=== PATIENT | female | born 1945 | race Native Hawaiian/Other Pacific Islander ===

== ENCOUNTER 2017-04-08 15:09 | Outpatient (CLI) | payer OTHER, MEDICARE ==
[2017-04-08 15:31] LABS: PLATELET COUNT 285 K/uL (152-353)
[2017-04-08 16:12] LABS: POTASSIUM 4.5 mmol/L (3.6-5.2)
== END 2017-04-08 19:18 | disposition home or self-care (01) ==
LOC: LAB 15:09
PROVIDERS: Nurse Practitioner Family
DX: K21.9 Gastro-esophageal reflux disease without esophagitis (principal); I10 Essential (primary) hypertension; E78.4 Other hyperlipidemia; E55.9 Vitamin D deficiency, unspecified; Z79.899 Other long term (current) drug therapy; Z51.81 Encounter for therapeutic drug level monitoring
CPT/HCPCS: 80053; 80061; 82306; 83036; 84436; 84443; 85027

== ENCOUNTER 2017-09-21 14:00 | Outpatient (CLI) | payer OTHER, MEDICARE ==
[2017-09-21 14:51] LABS: PLATELET COUNT 287 K/uL (152-353)
[2017-09-21 15:26] LABS: POTASSIUM 3.7 mmol/L (3.6-5.2)
== END 2017-09-21 19:21 | disposition home or self-care (01) ==
LOC: LAB 14:00
PROVIDERS: Nurse Practitioner Family
DX: I10 Essential (primary) hypertension (principal); K21.9 Gastro-esophageal reflux disease without esophagitis; Z86.73 Personal history of transient ischemic attack (TIA), and cerebral infarction without residual deficits; E78.4 Other hyperlipidemia; Z79.899 Other long term (current) drug therapy; Z51.81 Encounter for therapeutic drug level monitoring
CPT/HCPCS: 80053; 80061; 83036; 84436; 84443; 85027

== ENCOUNTER 2017-12-12 08:43 | Observation (INO) | payer OTHER, MEDICARE ==
[~2017-12-12] VITALS: Ht 165.1 cm; Wt 79.5 kg
[2017-12-12 08:59] VITALS: BP 137/75; TEMP 97.3
[2017-12-12] MEDS ORDERED: ELIQUIS5 MG PO (09:00)
[2017-12-12] MEDS ORDERED: PANTOPRAZOLE 40MG TA PO (09:01)
[2017-12-12] MEDS ORDERED: METO50TA27 PO (09:01)
[2017-12-12] MEDS ORDERED: TRIA37.541 PO (09:02)
[2017-12-12] MEDS ORDERED: LIPITOR80 MG PO (09:02)
[2017-12-12 09:47] LABS: PLATELET COUNT 241 K/uL (152-353)
[2017-12-12 09:53] LABS: POTASSIUM 4.1 mmol/L (3.6-5.2)
[2017-12-12 10:10] VITALS: BP 132/72
[2017-12-12 11:57] LABS: PARTIAL THROMBOPLASTIN TIME 27.4 SECONDS (24.5-33.6)
[2017-12-12 12:44] VITALS: BP 136/71; TEMP 97.9; Ht 165.1 cm; Wt 79.5 kg
[2017-12-12 16:00] VITALS: BP 133/81; TEMP 98.2
[2017-12-12 20:00] VITALS: BP 142/94; TEMP 97.7
== END 2017-12-12 20:50 | disposition short-term general hospital (02) ==
LOC: ED 08:43 → MED/SURG 10:30
DX: R07.89 Other chest pain (principal); K21.9 Gastro-esophageal reflux disease without esophagitis; I48.91 Unspecified atrial fibrillation; Z86.73 Personal history of transient ischemic attack (TIA), and cerebral infarction without residual deficits; A04.8 Other specified bacterial intestinal infections
CPT/HCPCS: 36415; 80053; 81000; 82550; 84484; 85027; 85610; 85730; 86318; 93005; 99220; G0378

== ENCOUNTER 2017-12-12 21:00 | Outpatient (CLI) | payer OTHER, MEDICARE ==
[~2017-12-12 21:00] MED LIST: ELIQUIS5 MG PO; LIPITOR80 MG PO; METO50TA27 PO; PANTOPRAZOLE 40MG TA PO; TRIA37.541 PO
== END 2017-12-12 22:08 | disposition short-term general hospital (02) ==
LOC: AMB 21:00
DX: R07.89 Other chest pain (principal); K21.9 Gastro-esophageal reflux disease without esophagitis; I48.91 Unspecified atrial fibrillation; Z86.73 Personal history of transient ischemic attack (TIA), and cerebral infarction without residual deficits; A04.8 Other specified bacterial intestinal infections
CPT/HCPCS: A0425; A0427